=== PATIENT | female | born 1960 | race Caucasian/White ===

== ENCOUNTER 2016-11-13 14:11 | Emergency (ER) | payer OTHER | END 2016-11-13 17:35 | disposition home or self-care (01) | LOC: ER1 14:11 | DX: M79.662 Pain in left lower leg (principal); I83.893 Varicose veins of bilateral lower extremities with other complications; I10 Essential (primary) hypertension; E03.9 Hypothyroidism, unspecified; Z88.0 Allergy status to penicillin; Z88.1 Allergy status to other antibiotic agents; Z79.4 Long term (current) use of insulin; Z79.899 Other long term (current) drug therapy | CPT/HCPCS: 36415; 85379; 93971; 99284 ==